=== PATIENT | female | born 1990 | race American Indian/Alaskan Native ===

== ENCOUNTER 2017-08-27 17:33 | Emergency (ER) | payer SELFPAY ==
[2017-08-27 17:58] VITALS: BP 142/99
[2017-08-27] MEDS ORDERED: MOTRIN PO ONE (20:41)
[2017-08-27] MEDS ORDERED: BOOSTRIX IM ONE (20:41)
[2017-08-27] MEDS ORDERED: XYLOCAINE 1% 20 mL INFILTRATI ONE (20:41)
[2017-08-27] MEDS ORDERED: XYLOCAINE 2%/ EPI 1:200,000 INFILTRATI ONE ×2 (20:42→20:43)
--- NOTE | 2017-08-27 21:06 | Emergency Department Report ---
ED Laceration HPI - HPI Chief Complaint: Extremity Injury, Upper Stated Complaint: LACERATION ON LEFT ARM Time Seen by Provider: 08/27/17 20:40 Occurred When: Today Location: Upper Extremity Severity: mild Tetanus Status: Not up to Date Other History: This is a 27-year-old female nontoxic, well nourished in appearance, no acute signs of distress presents to the ED with c/o of left forearm laceration that occurred this afternoon. Patient stated that she got mad and punched a window glass and caused a laceration. Patient denies any numbness, tingling, fever, chills, nausea, vomiting, headache, stiff neck. Patient stated a bleeding is under control. Patient denies being up-to-date with tetanus. Denies any allergies or significant past medical history. ED Review of Systems ROS: Stated complaint: LACERATION ON LEFT ARM Other details as noted in HPI Constitutional: denies: chills, fever Eyes: denies: eye pain, eye discharge, vision change ENT: denies: ear pain, throat pain Respiratory: denies: cough, shortness of breath, wheezing Cardiovascular: denies: chest pain, palpitations Endocrine: no symptoms reported Gastrointestinal: denies: abdominal pain, nausea, diarrhea Genitourinary: denies: urgency, dysuria, discharge Musculoskeletal: denies: back pain, joint swelling, arthralgia Skin: denies: rash, lesions Neurological: denies: headache, weakness, paresthesias Psychiatric: denies: anxiety, depression Hematological/Lymphatic: denies: easy bleeding, easy bruising ED Past Medical Hx - Past Medical History Previous Medical History?: No Additional medical history: No previous history of psych per patient. - Surgical History Past Surgical History?: No - Social History Smoking Status: Current Every Day Smoker Substance Use Type: Alcohol, Cocaine, Marijuana - Medications Home Medications: Home Medications Medication Instructions Recorded Confirmed Last Taken Type Ibuprofen [Motrin] 600 mg PO Q8H PRN #30 tablet 08/27/17 Unknown Rx Sulfamethoxazole/Trimethoprim 1 each PO BID #14 tablet 08/27/17 Unknown Rx [Bactrim DS TAB] Laceration Physical Exam - Exam General: Vital signs noted. No distress. Alert and acting appropriately. GENERAL: The patient is a well-developed, well-nourished in no apparent distress. Patient is alert and acting appropriately for age. Alert and oriented 3, no apparent distress, normal gait, atraumatic. HEENT: Head is normocephalic and atraumatic. PERRL, Extraocular muscles are intact. Pupils are equal, round, and reactive to light and accommodation. Nares appeared normal. Mouth is well hydrated and without lesions. Mucous membranes are moist. Posterior pharynx clear of any exudate or lesions. Mouth is well hydrated and without lesions. Tonsils not erythematous or swollen. Uvula midline. Tongue elevated. Mucous members are moist. Posterior pharynx clear, no exudate or lesions. Patent airways. NECK: Supple. No carotid bruits. No lymphadenopathy or thyromegaly.nontender. No meningitic signs are noted. LUNGS: Clear to auscultation. Non labor breathing. No intercostal retractions. Symmetrical with respiration, no wheezing, no rales, or crackles. HEART: Regular rate and rhythm without murmur, rubs or gallops. No reproducible. S1, S2 present, regular rate and rhythm without murmur, no rubs, no gallops. ABDOMEN: Soft, nontender, and nondistended. Positive bowel sounds. No hepatosplenomegaly was noted. No guarding or rebound tenderness, negative epigastric bruit. Negative psoas sign, negative gutierrez sign, negative McBurneys sign EXTREMITIES: Without any cyanosis, clubbing, rash, lesions or edema. Peripheral pulses intact. Capillary refill less than 2 seconds. Full range of motion bilaterally. NEUROLOGIC: Cranial nerves II through XII are grossly intact. Alert and oriented x 3. Normal gait. Symmetrical strength and sensation. Reflexes 2+ throughout. Cerebellar testing normal. GCS score of 15. PSYCHIATRIC: Normal affect with no suicidal or homicidal ideations. Skin: 6 cm deep flap laceration to the left anterior arm. Bleeding under control. No signs of cellulitis. Neurovascular intact. Wound Length (cm): 6 Laceration Location: Upper Extremity Full Body Front + Back: 1 - 6 cm deep flap with bleeding under control. Laceration Exam: Yes Normal Distal CMS, No Foreign Body, No Exposed Tendon, Vessel, or Nerve, No Tendon Injury ED Course Vital Signs 08/27/17 17:52 Temperature 98.8 F Pulse Rate 85 Respiratory 20 Rate Blood Pressure 142/99 O2 Sat by Pulse 97 Oximetry - Reevaluation(s) Reevaluation #1: 08/27/17 21:07 Patient is speaking in full sentences with no signs of distress noted. - Laceration /Wound Repair Left Arm Wound Location: upper extremity (left forearm) Wound Length (cm): 6 Wound's Depth, Shape: flap Wound Explored: clean Irrigated w/ Saline (ccs): 500 Betadine Prep?: Yes Anesthesia: Lidocaine w/ Epi (2% with 1:200,000 epi) Volume Anesthetic (ccs): 10 Wound Debrided: minimal Wound Repaired With: sutures Suture Size/Type: 4:0, proline Number of Sutures: 13 Layer Closure?: Yes Deep Layer Suture Size/Type: 3:0 (Vicryl) Number Deep Layer Sutures: 6 Sterile Dressing Applied?: Yes Progress: Patient first soaked extremity with soap and 500 sterile water. Under sterile field, I used Betadine to clean the area. I then used 40 mL of normal saline to flush the area. I then used 2% lidocaine with epi 1-200,000 and injected 10 mL to the wound. I then used a 3-0 Vicryl to suture the deeper dermis laceration with total of 6 stitches placed to proximate. I then used a 4-0 Vicryl for the superficial laceration. Number of stitches 13. I then applied a sterile 4 x 4 with tape. Minimal bleeding noted but is under control. Patient tolerated procedure well with no signs of distress. ED Medical Decision Making - Medical Decision Making This is a 27-year-old female that presents with laceration. Patient is stable and was examined by me. The laceration suturing has been performed and has been performed and patient tolerated well. A sterile dressing has been applied. X-ray has been obtained for rule out foreign body. Patient was educated on proper wound care. Patient received a tetanus booster in the Ed. Patient was instructed to return in 10 days for suture removal. Patient was instructed to refer to Follow-up with a primary care doctor in 3-5 days or if symptoms worsen and continue return to emergency room as soon as possible. At time of discharge, the patient does not seem toxic or ill in appearance. No acute signs of distress noted. Patient agrees to discharge treatment plan of care. No further questions noted by the patient. Critical care attestation.: If time is entered above; I have spent that time in minutes in the direct care of this critically ill patient, excluding procedure time. ED Disposition Clinical Impression: Laceration Disposition: DC-01 TO HOME OR SELFCARE Is pt being admited?: No Does the pt Need Aspirin: No Condition: Stable Instructions: Suture Care (ED), Laceration (ED), Sulfamethoxazole/Trimethoprim (By mouth) Additional Instructions: Follow-up with a primary care doctor in 3-5 days or if symptoms worsen and continue return to emergency room as soon as possible. Return in 10 days for suture removal. You can go to [facility] and receive Bactrim antibiotics for free. Prescriptions: Ibuprofen [Motrin] 600 mg PO Q8H PRN #30 tablet PRN Reason: Pain Sulfamethoxazole/Trimethoprim [Bactrim DS TAB] 1 each PO BID #14 tablet Referrals: PRIMARY CAREMD [Primary Care Provider] - 3-5 Days LIZBETH LEVINE MD [Staff Physician] - 3-5 Days [facility] [Outside] - 3-5 Days [facility] [Outside] - 3-5 Days
[2017-08-27] MEDS ORDERED: NACL 0.9% 500 ML IR ONE (21:14)
--- NOTE | 2017-08-27 22:07 | XRay Report ---
FINAL REPORT EXAM: XR FOREARM LT HISTORY: lac with pain r/o glass foreign body TECHNIQUE: Two views of the left forearm PRIORS: None. FINDINGS: There is a soft tissue defect on the volar surface of the mid to distal forearm. There is no associated foreign body. There is a round calcification along the medial side of the proximal forearm consistent with a phlebolith. The bones are normally aligned and mineralized. There is no evidence of fracture or subluxation. IMPRESSION: No evidence of fracture or foreign body
[2017-08-28] MEDS ORDERED: NACL 0.9% IR ONE (01:05)
== END 2017-08-27 22:25 | disposition home or self-care (01) ==
LOC: ED 17:33
DX: S51.812A Laceration without foreign body of left forearm, initial encounter (principal); F17.200 Nicotine dependence, unspecified, uncomplicated; F12.10 Cannabis abuse, uncomplicated; F14.10 Cocaine abuse, uncomplicated; W22.8XXA Striking against or struck by other objects, initial encounter; Y93.89 Activity, other specified; Y92.89 Other specified places as the place of occurrence of the external cause; Y99.8 Other external cause status
CPT/HCPCS: 90471; 90715; 99284